=== PATIENT | male | born 1975 | race Caucasian/White ===

== ENCOUNTER → 2018-10-17 | Outpatient (REF) ==
[2018-10-17 12:00] LABS: CHOLESTEROL HDL RATIO 6.2 (<4.4 (CALC)); HDL CHOLESTEROL 34 mg/dL (>=40); TOTAL CHOLESTEROL 211 mg/dl (0-199)
[2018-10-17 12:07] LABS: VLDL CHOLESTROL 217 mg/dl (5-56 (CALC))
[2018-10-17 12:35] LABS: TOTAL TRIGLYCERIDES 1085 mg/dl (30-149)
== END | disposition home or self-care (01) | DRG 951 ==
LOC: LAB 10:58
PROVIDERS: ATTEND Family Medicine
DX: Z02.6 Encounter for examination for insurance purposes (principal)